=== PATIENT | female | born 1935 | race Caucasian/White ===

== ENCOUNTER → 2021-05-21 | Outpatient (REF) ==
[2021-05-21 09:51] LABS: ALBUMIN 3.5 g/dL (3.4-4.8); CALCIUM 9.5 mg/dL (8.3-10.5); POTASSIUM 4.2 mmol/L (3.5-5.1); TOTAL BILIRUBIN 0.3 mg/dL (0.2-1.2); TOTAL PROTEIN 6.1 g/dL (6.2-8.1)
== END ==
LOC: LAB 08:59
DX: Z01.89 Encounter for other specified special examinations (principal)